=== PATIENT | male | born 1950 | race Caucasian/White ===

== ENCOUNTER 2019-04-14 08:04 | Emergency (ER) | payer BC ==
--- NOTE | 2019-04-14 08:40 | EDM.PDOC ---
ED HPI GENERAL MEDICAL PROBLEM - General Chief Complaint: Respiratory Problem Stated Complaint: COUGHING Time Seen by Provider: 04/14/19 08:33 Source of Information: Reports: Patient History Limitations: Reports: No Limitations - History of Present Illness Onset: Gradual Duration: Day(s): (Two days of coughing up yellow to green sputum.) Location: Reports: Chest (tightness due to coughing for two days. He denies any chest pain.), Other (also complains of nasal congestion.) Severity: Mild (to moderate coughing.) Improves with: Reports: Medication (has taken Z-pack in the past that seems to help a lot.) Worsens with: Reports: Breathing (coughing) Context: Reports: Other (nothing seems to bother him.) Associated Symptoms: Reports: cough w sputum (as noted above.). Denies: Fever/ Chills, Headaches, Loss of Appetite - Related Data Allergies Allergy/AdvReac Type Severity Reaction Status Date / Time atorvastatin [From Lipitor] Allergy Chest Verified 04/14/19 08:16 [facility] Home Meds: Home Meds Azithromycin 250 mg PO BID 7 Days #14 tablet 04/14/19 [Rx] Dextromethorphan/guaiFENesin [Mucinex DM ER 600-30 MG] 1 each PO BID 10 Days # 20 tab.er 04/14/19 [Rx] Fluticasone/Salmeterol [Advair 250-50] 1 inh INH 04/14/19 [History] Lisinopril [Zestril] 1 tab PO DAILY 04/14/19 [History] Tamsulosin HCl [Flomax] 1 tab PO DAILY 04/14/19 [History] amLODIPine [Norvasc] 1 tab PO DAILY 04/14/19 [History] Past Medical History Other HEENT History: sinus issues per PT Cardiovascular History: Reports: Hypertension - Infectious Disease History Infectious Disease History: Reports: Measles - Past Surgical History GI Surgical History: Reports: Appendectomy Musculoskeletal Surgical History: Reports: Shoulder Surgery Social & Family History - Family History Family Medical History: Noncontributory - Tobacco Use Smoking Status *Q: Never Smoker - Recreational Drug Use Recreational Drug Use: No ED ROS GENERAL - Review of Systems Review Of Systems: See Below Constitutional: Reports: No Symptoms HEENT: Reports: Rhinitis (with nasal congestion of yellow to green discharge.) Respiratory: Reports: Shortness of Breath (very mild SOB he feels is due to coughing), Cough, Sputum. Denies: Wheezing, Pleuritic Chest Pain Cardiovascular: Reports: No Symptoms. Denies: Chest Pain, Dyspnea on Exertion, Lightheadedness, Orthopnea, Palpitations, PND, Syncope Endocrine: Reports: No Symptoms GI/Abdominal: Reports: No Symptoms : Reports: No Symptoms Musculoskeletal: Reports: No Symptoms Skin: Reports: No Symptoms Neurological: Reports: No Symptoms Psychiatric: Reports: No Symptoms Hematologic/Lymphatic: Reports: No Symptoms Immunologic: Reports: No Symptoms ED EXAM, GENERAL - Physical Exam Exam: See Below Exam Limited By: No Limitations General Appearance: Alert, No Apparent Distress Eye Exam: Bilateral Eye: Normal Fundi, Normal Inspection, PERRL Ears: Normal External Exam, Normal Canal, Hearing Grossly Normal, Normal TMs Ear Exam: Bilateral Ear: Auricle Normal, Canal Normal, TM normal Nose: Normal Mucosa, No Blood, Nasal Drainage (green to yellow.). No: Nasal Tenderness, Nasal Swelling Throat/Mouth: Normal Inspection, Normal Lips, Normal Teeth, Normal Gums, Normal Oropharynx, Normal Voice, No Airway Compromise Head: Atraumatic, Normocephalic Neck: Normal Inspection, Supple, Non-Tender, Full Range of Motion. No: Carotid Bruit, Lymphadenopathy (L), Lymphadenopathy (R), Thyromegaly Respiratory/Chest: No Respiratory Distress. No: Decreased Breath Sounds, Rales , Rhonchi, Wheezing, Prolonged Expiration Cardiovascular: Normal Peripheral Pulses, Regular Rate, Rhythm, No Edema, No Gallop, No JVD, No Murmur, No Rub Peripheral Pulses: 4+: Carotid (L), Carotid (R), Radial (L), Radial (R), Dorsalis Pedis (L), Dorsalis Pedis (R) GI/Abdominal: Normal Bowel Sounds, Soft, Non-Tender, No Organomegaly, No Distention, No Abnormal Bruit, No Mass Extremities: Normal Inspection, Normal Range of Motion, Non-Tender, Normal Capillary Refill, No Pedal Edema Neurological: Alert, Oriented, CN II-XII Intact, Normal Cognition, Normal Gait, Normal Reflexes, No Motor/Sensory Deficits Psychiatric: Normal Affect, Normal Mood Skin Exam: Warm, Dry, Intact, Normal Color, No Rash Lymphatic: No Adenopathy Course - Vital Signs Text/Narrative:: I discussed with Mr. Young all of his diagnostic test as well as his ECG and Chest X-Ray. He states that he feels that the antibiotic along with the Mucinex DM will be very helpful. I agree. He will be discharged at this time. Last Recorded V/S: Last Vital Signs Temp 97.5 F 04/14/19 08:19 Pulse 72 04/14/19 08:19 Resp 20 04/14/19 08:19 BP 155/88 H 04/14/19 08:19 Pulse Ox 94 L 04/14/19 08:19 - Orders/Labs/Meds Orders: Active Orders 24 hr Category Date Time Status EKG Documentation Completion [RC] STAT Care 04/14/19 08:58 Active Labs: Laboratory Tests 04/14/19 04/14/19 04/14/19 Range/Units 09:06 09:06 09:06 WBC 9.84 (4.0-11.0) K/uL RBC 4.33 L (4.50-5.90) M/uL Hgb 13.2 (13.0-17.0) g/dL Hct 38.7 (38.0-50.0) % MCV 89.4 (80.0-98.0) fL MCH 30.5 (27.0-32.0) pg MCHC 34.1 (31.0-37.0) g/dL RDW Std Deviation 44.8 (28.0-62.0) fl RDW Coeff of Oli 14 (11.0-15.0) % Plt Count 188 (150-400) K/uL MPV 10.40 (7.40-12.00) fL Neut % (Auto) 67.4 (48.0-80.0) % Lymph % (Auto) 18.1 (16.0-40.0) % [place] % (Auto) 10.3 (0.0-15.0) % Eos % (Auto) 3.7 (0.0-7.0) % Baso % (Auto) 0.5 (0.0-1.5) % Neut # (Auto) 6.6 H (1.4-5.7) K/uL Lymph # (Auto) 1.8 (0.6-2.4) K/uL [place] # (Auto) 1.0 H (0.0-0.8) K/uL Eos # (Auto) 0.4 (0.0-0.7) K/uL Baso # (Auto) 0.1 (0.0-0.1) K/uL Nucleated RBC % 0.0 /100WBC Nucleated RBCs # 0 K/uL Sodium 143 (136-148) mmol/L Potassium 4.0 (3.5-5.1) mmol/L Chloride 108 H (98-107) mmol/L Carbon Dioxide 22.6 (21.0-32.0) mmol/L BUN 20 H (7.0-18.0) mg/dL Creatinine 1.0 (0.8-1.3) mg/dL Est Cr Clr Drug Dosing 71.68 mL/min Estimated GFR (MDRD) > 60.0 ml/min Glucose 97 (74-106) mg/dL Calcium 8.7 (8.5-10.1) mg/dL Troponin I < 0.050 (0.000-0.056) ng/mL Meds: Medications Discontinued Medications Generic Name Dose Route Start Last Admin Trade Name Freq PRN Reason Stop Dose Admin Azithromycin 500 mg 04/14/19 08:42 04/14/19 08:59 Zithromax PO 04/14/19 08:43 500 mg Q24H STA Administration Guaifenesin 600 mg 04/14/19 08:46 04/14/19 09:00 Mucinex PO 04/14/19 08:47 600 mg ONETIME ONE Administration Departure - Departure Time of Disposition: 10:20 Disposition: Home, Self-Care 01 Condition: Good Clinical Impression: Bronchitis - Discharge Information *PRESCRIPTION DRUG MONITORING PROGRAM REVIEWED*: Yes *COPY OF PRESCRIPTION DRUG MONITORING REPORT IN PATIENT WAN: Yes Instructions: Acute Bronchitis, Adult, [id number] Referrals: PCP,Not In Area [Primary Care Provider] - Forms: ED Department Discharge Additional Instructions: Take all medications as directed. Follow up with your PCP in the next three to four days. Drink plenty of clear liquids over the next two to three days. Return to the ED if your condition gets worse or should you have any further concerns. Sepsis Event Note - Evaluation Sepsis Screening Result: No Definite Risk - Focused Exam Vital Signs: Vital Signs Temp Pulse Resp BP Pulse Ox 04/14/19 08:19 97.5 F 72 20 155/88 H 94 L Date Exam was Performed: 04/14/19 Time Exam was Performed: 10:14 - My Orders Last 24 Hours: My Active Orders 04/14/19 08:58 EKG Documentation Completion [RC] STAT - Assessment/Plan Last 24 Hours: My Active Orders 04/14/19 08:58 EKG Documentation Completion [RC] STAT
[2019-04-14] MEDS ORDERED: Azithromycin 250 MG Tab PO STA (08:42)
[2019-04-14] MEDS ORDERED: guaiFENesin 600 MG Tab.ER PO ONE (08:46)
--- NOTE | 2019-04-14 09:12 | CR ---
HISTORY: Cough. TECHNIQUE: Two views chest. COMPARISON: No prior. FINDINGS: Cardiac size and pulmonary vasculature are within normal limits. There is no lung infiltrate or pulmonary edema. No pneumothorax or pleural effusion. No acute bony abnormality. IMPRESSION: No acute disease. Dictated by Thien Villegas MD @ 04/14/2019 9:09:23 AM Dictated by: Thien Villegas MD @ 04/14/2019 09:09:26 (Electronically Signed)
[2019-04-14 09:36] LABS: BLOOD UREA NITROGEN,BUN 20 mg/dL (7.0-18.0); CARBON DIOXIDE,CO2 22.6 mmol/L (21.0-32.0); CHLORIDE,CL 108 mmol/L (98-107); GLUCOSE RANDOM 97 mg/dL (74-106); SODIUM,NA 143 mmol/L (136-148)
== END 2019-04-14 10:33 | disposition home or self-care (01) ==
LOC: MW.ED 08:04
DX: J40 Bronchitis, not specified as acute or chronic (principal); I10 Essential (primary) hypertension; Z88.8 Allergy status to other drugs, medicaments and biological substances; Z79.899 Other long term (current) drug therapy
CPT/HCPCS: 36415; 71046; 80048; 84484; 85025; 87804; 93005; 99284; A9270